=== PATIENT | male | born 1960 | race Caucasian/White ===

== ENCOUNTER 2018-09-13 20:23 | Emergency (ER) | payer MEDICAID ==
[~2018-09-13] VITALS: Ht 157.5 cm; Wt 85.0 kg
[~2018-09-13 20:23] MED LIST: ASPI-41 PO; ENAL10TA78 PO; GABA-532 PO; INSU100V5 IJ; NPH,100V SQ
[2018-09-13] MEDS ORDERED: LIDOcaine 1% w/epiNEPHrine 1:200,000 30ml vial IM ONE (20:30)
[2018-09-13] MEDS ORDERED: normal saline 1000ML IV soln IVB ONE (23:35)
--- NOTE | 2018-09-13 23:40 | NUR ---
pt reporting that he cruz a lot of pain to his right ribs when palpated and when moving and alos pain to his right elbow. automatic bp 74/56, 82/[address] de dios aware. and ordering piv, fluids, and ct scan of abd
[2018-09-13] MEDS ORDERED: iohexol 300mg/ml 100ml inj. ONE (23:45)
--- NOTE | 2018-09-14 00:03 | NUR ---
Seen the patients right lower leg, it is swollen and purple markings to the inner right knee/medial tibial area. Asked for an xray.
--- NOTE | 2018-09-14 00:04 | NUR ---
made aware that I placed the US at BS.
[2018-09-14 00:06] LABS: BASOPHILS % (AUTO) 0.2 % (0-1); EOSINOPHILS % (AUTO) 0.1 % (0-6); HEMATOCRIT 42.1 % (42.0-52.0); HEMOGLOBIN 14.1 g/dl (14.0-17.9); LYMPHOCYTES # (AUTO) 1.3 X10'3 (1.1-4.8); LYMPHOCYTES % (AUTO) 8.5 % (21-51); MEAN CORPUSCULAR HEMOGLOBIN 29.8 PG (27.0-31.0); MEAN CORPUSCULAR HGB CONC 33.4 g/dL (33.0-36.5); MEAN CORPUSCULAR VOLUME 89.1 FL (78-98); MEAN PLATELET VOLUME 8.2 FL (7.4-10.4); MONOCYTES # (AUTO) 0.8 X10'3 (0-0.9); MONOCYTES % (AUTO) 4.9 % (2-12); NEUTROPHILS # (AUTO) 13.7 X10'3 (1.8-7.7); NEUTROPHILS % (AUTO) 86.3 % (42-75); PLATELET COUNT 173 X10'3 (140-440); RED BLOOD COUNT 4.72 X10'6 (4.70-6.10); RED CELL DISTRIBUTION WIDTH 13.7 % (11.5-14.5); WHITE BLOOD COUNT 15.9 X10'3 (4.5-11.0)
--- NOTE | 2018-09-14 00:10 | NUR ---
dr. de dios at bedside to do FAST scan. FAST scan negative per dr. de dios.
[2018-09-14 00:15] LABS: ALANINE AMINOTRANSFERASE 130 U/L (12-78); ALBUMIN 3.3 G/DL (3.4-5.0); ALBUMIN/GLOBULIN RATIO 1.1 (1.1-1.5); ALKALINE PHOSPHATASE 95 IU/L (46-116); ANION GAP 8 (8-16); ASPARTATE AMINO TRANSFERASE 124 U/L (10-37); BILIRUBIN,TOTAL 0.6 MG/DL (0.1-1.0); BLOOD UREA NITROGEN 13 MG/DL (7-18); BUN/CREATININE RATIO 8.9 (5.4-32.0); CHLORIDE 98 MMOL/L (99-107); CREATININE 1.46 MG/DL (0.60-1.10); ETHANOL 0.089 GM/DL (0.0-0.010); GLUCOSE 372 MG/DL (70-104); LIPASE 187 U/L (73-393); POTASSIUM 5.1 MMOL/L (3.5-5.1); SODIUM 132 MMOL/L (135-145); TOTAL PROTEIN 6.2 G/DL (6.4-8.2); eGFR 50 ML/MIN
--- NOTE | 2018-09-14 00:26 | NUR ---
dr. de dios while doing FAST scan, noting a 1 cm lac to pt's right armpit. now ordereing a chest ct . updated that pt reporting 10 otu of 10 pain to his head. my self and rn, jorge, did full body skin check for adtional wounds, non found.
[2018-09-14 01:16] LABS: CLARITY,URINE CLEAR (Clear); COLOR,URINE YELLOW (Yellow); GLUCOSE, URINE >=1000 mg/dl (Neg); KETONES,URINE TRACE mg/dl (Neg); LEUKOCYTE ESTERASE ,URINE NEGATIVE (Neg); NITRITES, URINE NEGATIVE (Neg); OCCULT BLOOD,URINE NEGATIVE (Neg); PH,URINE 5.5 (4.8-8.0); PROTEIN,URINE NEGATIVE (Neg); UA COLLECTION TYPE CLN CATCH MIDSTREAM; UROBILINOGEN,URINE 0.2 E.U/dL (0.2-1.0)
[2018-09-14 01:21] LABS: RBC,URINE 0-2 /HPF (0-2); WBC,URINE NONE SEEN /HPF (0-4)
[2018-09-14 01:22] LABS: BACTERIA,URINE NONE SEEN /HPF (Neg); SQUAMOUS EPITHELIAL CELL,UR FEW /LPF (FEW)
[2018-09-14 01:27] LABS: URINE AMPHETAMINE SCREEN POSITIVE (Neg); URINE BARBITUATE SCREEN NEGATIVE (Neg); URINE BENZODIAZEPINES SCREEN NEGATIVE (Neg); URINE CANNABINOID SCREEN NEGATIVE (Neg); URINE COCAINE SCREEN NEGATIVE (Neg); URINE METHADONE SCREEN NEGATIVE (Neg); URINE OPIATE SCREEN POSITIVE (Neg); URINE PHENCYCLIDINE SCREEN NEGATIVE (Neg)
--- NOTE | 2018-09-14 01:43 | NUR ---
RETURNED FROM XRAY OF RIGHT LEG, STABLE BP NOW.
[2018-09-14] MEDS ORDERED: ketorolac trometh. 30mg/ml inj. IV ONE (03:40)
--- NOTE | 2018-09-14 03:44 | NUR ---
dr soto at bedside to suture head lac and staple right armpit lac.
[2018-09-14] MEDS ORDERED: IBUP-1986 PO (03:45)
[2018-09-14] MEDS ORDERED: ONDA4TAB6 PO (03:45)
[2018-09-14] MEDS ORDERED: HYDR-4353 PO (03:45)
[2018-09-14 03:55] VITALS: BP 112/53
== END 2018-09-14 05:31 | disposition home or self-care (01) ==
LOC: ER 20:23
DX: S81.811A Laceration without foreign body, right lower leg, initial encounter (principal); S01.01XA Laceration without foreign body of scalp, initial encounter; S41.111A Laceration without foreign body of right upper arm, initial encounter; S20.211A Contusion of right front wall of thorax, initial encounter; S50.01XA Contusion of right elbow, initial encounter; I10 Essential (primary) hypertension; E11.9 Type 2 diabetes mellitus without complications; F12.90 Cannabis use, unspecified, uncomplicated; Z79.82 Long term (current) use of aspirin; Z79.899 Other long term (current) drug therapy; Z79.4 Long term (current) use of insulin; W18.49XA Other slipping, tripping and stumbling without falling, initial encounter; Y93.89 Activity, other specified; Y92.89 Other specified places as the place of occurrence of the external cause; Y99.9 Unspecified external cause status
CPT/HCPCS: 12002; 36415; 70450; 71045; 71260; 73080; 73564; 74177; 80053; 80305; 80320; 81001; 83690; 85025; 96374; 99284; J1885; J3490; J7030; Q9967

== ENCOUNTER 2018-09-24 13:23 | Emergency (ER) | payer MEDICAID ==
[~2018-09-24] VITALS: Ht 157.5 cm; Wt 78.0 kg
[~2018-09-24 13:23] MED LIST changes: +HYDR-4353 PO; +IBUP-1986 PO; +ONDA4TAB6 PO
[2018-09-24 14:30] VITALS: BP 149/67
== END 2018-09-24 14:31 | disposition home or self-care (01) ==
LOC: ER 13:24
DX: S01.01XD Laceration without foreign body of scalp, subsequent encounter (principal); S81.811D Laceration without foreign body, right lower leg, subsequent encounter; S41.111D Laceration without foreign body of right upper arm, subsequent encounter; I10 Essential (primary) hypertension; E11.9 Type 2 diabetes mellitus without complications; F12.90 Cannabis use, unspecified, uncomplicated; Z79.82 Long term (current) use of aspirin; X58.XXXD Exposure to other specified factors, subsequent encounter
CPT/HCPCS: 99284

== ENCOUNTER 2018-11-02 11:49 | Inpatient (IN) | payer MEDICAID ==
[~2018-11-02] VITALS: Ht 152.4 cm; Wt 75.3 kg
[2018-11-02] VITALS (14 sets, daily range): BP systolic 89–149; BP diastolic 45–90
[~2018-11-02 11:49] MED LIST changes: -HYDR-4353 PO
[2018-11-02] MEDS ORDERED: ondansetron/PF 4mg/2ml inj IV ONE (12:15)
[2018-11-02] MEDS ORDERED: ketorolac trometh. 30mg/ml inj. IV ONE (12:15)
[2018-11-02] MEDS ORDERED: normal saline 1000ML IV soln IVB ONE (12:15)
[2018-11-02 12:49] LABS: BASOPHILS % (AUTO) 0.3 % (0-1); EOSINOPHILS # (AUTO) 0.1 X10'3 (0-0.9); EOSINOPHILS % (AUTO) 0.4 % (0-6); HEMATOCRIT 50.2 % (42.0-52.0); HEMOGLOBIN 17.3 g/dl (14.0-17.9); LYMPHOCYTES # (AUTO) 1.7 X10'3 (1.1-4.8); LYMPHOCYTES % (AUTO) 9.9 % (21-51); MEAN CORPUSCULAR HEMOGLOBIN 30.6 PG (27.0-31.0); MEAN CORPUSCULAR HGB CONC 34.4 g/dL (33.0-36.5); MEAN PLATELET VOLUME 8.4 FL (7.4-10.4); MONOCYTES # (AUTO) 1.2 X10'3 (0-0.9); MONOCYTES % (AUTO) 7.3 % (2-12); NEUTROPHILS # (AUTO) 14.1 X10'3 (1.8-7.7); NEUTROPHILS % (AUTO) 82.1 % (42-75); PLATELET COUNT 332 X10'3 (140-440); RED BLOOD COUNT 5.65 X10'6 (4.70-6.10); RED CELL DISTRIBUTION WIDTH 13.3 % (11.5-14.5); WHITE BLOOD COUNT 17.2 X10'3 (4.5-11.0)
[2018-11-02 13:07] LABS: ALANINE AMINOTRANSFERASE 24 U/L (12-78); ALBUMIN 2.7 G/DL (3.4-5.0); ALBUMIN/GLOBULIN RATIO 0.5 (1.1-1.5); ALKALINE PHOSPHATASE 100 IU/L (46-116); ANION GAP 10 (8-16); ASPARTATE AMINO TRANSFERASE 14 U/L (10-37); BILIRUBIN,TOTAL 0.9 MG/DL (0.1-1.0); BLOOD UREA NITROGEN 48 MG/DL (7-18); BUN/CREATININE RATIO 26.2 (5.4-32.0); CALCIUM 9.7 MG/DL (8.5-10.1); CHLORIDE 89 MMOL/L (99-107); CREATININE 1.83 MG/DL (0.60-1.10); GLUCOSE 274 MG/DL (70-104); LIPASE 74 U/L (73-393); POTASSIUM 3.7 MMOL/L (3.5-5.1); SODIUM 127 MMOL/L (135-145); TOTAL CARBON DIOXIDE 28.4 MMOL/L (24-32); TOTAL PROTEIN 8.2 G/DL (6.4-8.2); eGFR 38 ML/MIN
[2018-11-02] MEDS ORDERED: piperacillin/tazo 3.375gm/50ml 50 ML IV ONE (14:25)
[2018-11-02] MEDS ORDERED: normal saline 1000ML IV soln IV ONE (14:25)
[2018-11-02 14:50] LABS: CLARITY,URINE CLEAR (Clear); COLOR,URINE YELLOW (Yellow); GLUCOSE, URINE >=1000 mg/dl (Neg); KETONES,URINE TRACE mg/dl (Neg); LEUKOCYTE ESTERASE ,URINE NEGATIVE (Neg); NITRITES, URINE NEGATIVE (Neg); OCCULT BLOOD,URINE TRACE-INTACT (Neg); PROTEIN,URINE 30 mg/dl (Neg)
[2018-11-02] MEDS ORDERED: CYCL-1 PO (14:50)
[2018-11-02] MEDS ORDERED: GABA-532 PO (14:50)
[2018-11-02] MEDS ORDERED: LISI-600 PO (14:51)
[2018-11-02] MEDS ORDERED: ASPI-1265 PO (14:51)
[2018-11-02] MEDS ORDERED: INSU200I SQ (14:52)
[2018-11-02] MEDS ORDERED: INSU100I31 SQ (14:52)
[2018-11-02 14:57] LABS: UA COLLECTION TYPE CLN CATCH MIDSTREAM
[2018-11-02 14:58] LABS: BACTERIA,URINE FEW /HPF (Neg); COARSE GRANULAR CAST 0-3 /LPF (NEGATIVE); MUCUS STRANDS FEW /LPF (Neg); RBC,URINE 0-2 /HPF (0-2); SQUAMOUS EPITHELIAL CELL,UR FEW /LPF (FEW); WBC,URINE 0-4 /HPF (0-4)
[2018-11-02] MEDS ORDERED: magnesium hydroxide 30ml (MOM) UD suspension PO PRN (15:00)
[2018-11-02] MEDS ORDERED: ondansetron/PF 4mg/2ml inj IV PRN ×2 (15:00→17:15)
[2018-11-02] MEDS: K and/or MAG REPLACEMENT MC SCH (15:00)
[2018-11-02] MEDS ORDERED: magnesium 2GM in 50ml NS 50 ML IV PRN (15:00)
[2018-11-02] MEDS ORDERED: potassium Cl 20 mEq SR tablet PO PRN ×2 (15:00)
[2018-11-02] MEDS ORDERED: magnesium Cl slow-release 64mg tablet PO PRN (15:00)
[2018-11-02] MEDS ORDERED: HYDROcodone/acetaminophen 10/325mg tab PO PRN (15:00)
[2018-11-02] MEDS ORDERED: acetaminophen 325mg tablet PO PRN (15:00)
[2018-11-02] MEDS ORDERED: HYDROcodone/acetaminophen 5mg/325mg tablet PO PRN ×2 (15:00→17:40)
[2018-11-02] MEDS ORDERED: HYDROmorphone inj. 0.5 MG/0.5 ML DISP.SYRIN IV PRN (15:00)
[2018-11-02] MEDS ORDERED: magnesium 4gm in 100ml NS 100 ML IV PRN (15:00)
[2018-11-02] MEDS ORDERED: potassium Cl 40MEQ/NS 500ml 500 ML IV PRN ×2 (15:00)
[2018-11-02] MEDS ORDERED: bisacodyl 10mg suppository rectal RC PRN (15:00)
[2018-11-02] MEDS ORDERED: dextrose 50%-water 50ml dispensing syringe IV PRN ×2 (15:05)
[2018-11-02] MEDS ORDERED: glucagon, human recombinant 1mg kit SUBCUT PRN (15:05)
[2018-11-02] MEDS ORDERED: LORazepam 2 mg/ml vial IV PRN (15:05)
[2018-11-02] MEDS ORDERED: MESSAGE TO PHARMACY PO ONE (15:05)
[2018-11-02] MEDS ORDERED: folic acid inj. 2 MG, thiamine inj. 100 MG, MVI, adult No.4 with vit. K 10 ML in dextro... IV SCH ×4 (15:05)
[2018-11-02] MEDS ORDERED: dextrose ORAL solution 15 GM/59 ML bottle PO PRN ×2 (15:05)
[2018-11-02] MEDS ORDERED: LORazepam 1 MG tablet PO PRN (15:05)
[2018-11-02] MEDS ORDERED: cyclobenzaprine 10mg tablet PO PRN (15:05)
[2018-11-02] MEDS ORDERED: LIDOcaine 1% 30ml preserv. free vial ONE (15:25)
[2018-11-02] MEDS ORDERED: BUPIVAcaine/PF 2.5mg/ml (0.25%) 10ml vial ONE (15:26)
[2018-11-02 15:27] LABS: TOTAL CELLS COUNTED 100
[2018-11-02 15:28] LABS: HEMOGLOBIN A1C 9.2 % (4.5-6.2)
[2018-11-02 15:30] LABS: PLATELET ESTIMATE NORMAL
--- NOTE | 2018-11-02 15:32 | NUR ---
Attempted to call report to floor. line haul owner operator has not assigned pt yet, they will call me when they have an assignment.
[2018-11-02 15:38] LABS: TOXIC GRANULATION 1+; TOXIC VACUOLATION FEW
--- NOTE | 2018-11-02 16:15 | NUR ---
Received report from MAXWELL Hansen. Patient went straight to the OR then will come up to the floor.
[2018-11-02] MEDS ORDERED: sevoflurane 250ml liquid IH ONE (16:38)
[2018-11-02] MEDS ORDERED: midazolam 2 mg/2 ml injection ONE (16:41)
[2018-11-02] MEDS ORDERED: fentaNYL /PF 50mcg/ml 5ml ampule ONE (16:42)
[2018-11-02] MEDS ORDERED: propofol inj 20 ML IV ONE (16:44)
[2018-11-02] MEDS ORDERED: rocuronium 10mg/ml inj IV ONE (16:44)
[2018-11-02] MEDS ORDERED: cefotetan 2gm/isosm dext IVPB 50 ML IV ONE (16:53)
[2018-11-02] MEDS ORDERED: ringers solution, lacted 1,000 ML IV SCH (17:14)
[2018-11-02] MEDS ORDERED: proCHLORperazine 10 MG/2 ml inj IV PRN (17:15)
[2018-11-02] MEDS ORDERED: morphine 4 MG/ML inj SYRINge IV PRN ×2 (17:15)
[2018-11-02] MEDS ORDERED: meperidine/PF 25mg/ml syringe IV PRN ×3 (17:15)
[2018-11-02] MEDS ORDERED: neostigmine methylsulfate 1 MG/ML 10ml vial ONE (17:28)
[2018-11-02] MEDS ORDERED: glycopyrrolate 0.2mg/ml inj ONE (17:47)
--- NOTE | 2018-11-02 17:49 | NUR ---
Received from OR via SURGICAL BED , accompanied by Anesthesiologist SOSA and report given by Anesthesiolgist. PATIENT WITH 20G PIV IN LEFT UE RUNNING LR AT 100. PATIENT WITH 10L MASK ON WITH 100% SATURATIONS. 2 ABDOMINAL BANDAIDS PRESENT AND A CAITLYN TUBE. VSS Addendum: 11/02/18 at 1811 by Esau Vinson RN, RN Amended: Links added.
--- NOTE | 2018-11-02 18:05 | NUR ---
Problems reprioritized. Patient report given, questions answered & plan of care reviewed with MAXWELL Montanez. Addendum: 11/02/18 at 1855 by Ivory Markham RN MAXWELL Alberto RN.
--- NOTE | 2018-11-02 18:49 | NUR ---
Report called to receiving nurse. Transferred via SURGICAL BED WITH SEVERAL BAGS OF Belongings. Special Issues communicated to receiving nurse TEVIN ARREOLA.VSS. PAIN WELL CONTROLLED. RN PRESENT TO ACCEPT CARE OF PATIENT. SCDS DONNED AND DRESSING STILL CDI. Addendum: 11/02/18 at 1908 by Esau Vinson RN RN Amended: Links added.
--- NOTE | 2018-11-02 18:55 | NUR ---
RECEIVED PT. FROM RECOVERY ROOM PER BED TO ROOM 345 A.
[2018-11-02] MEDS: heparin, porcine 5000 units/ml vial SQ SCH (20:00)
[2018-11-02] MEDS: gabapentin 300mg capsule PO SCH (20:06)
[2018-11-02] MEDS: docusate sod 100mg capsule PO SCH (20:06)
[2018-11-02] MEDS: HYDROmorphone 1 mg/ml syringe IV PRN (20:08)
[2018-11-02] MEDS: insulin glargine (Lantus) pen - multi-dose SQ SCH (21:22)
[2018-11-02] MEDS: piperacillin/tazo 4.5gm/100ml 100 ML IV SCH (23:53)
[2018-11-03] VITALS: BP 113/72
[2018-11-03] MEDS: potassium Cl 20mEq in NS 1,000 ML IV SCH ×4 (00:58→15:11)
[2018-11-03] MEDS: HYDROmorphone 1 mg/ml syringe IV PRN (02:05)
[2018-11-03 04:00] VITALS: BP 104/62
--- NOTE | 2018-11-03 04:27 | NUR ---
PT. ATTEMPTED MULTIPLE TIMES TO URINATE AND VOIDED ONLY 50 CC, BLADDER SCAN SHOWS 420 CC, DR. MOJICA NOTIFIED, NNO.
[2018-11-03 05:14] LABS: BASOPHILS % (AUTO) 0.2 % (0-1); EOSINOPHILS % (AUTO) 0 % (0-6); HEMATOCRIT 48.1 % (42.0-52.0); HEMOGLOBIN 16.1 g/dl (14.0-17.9); LYMPHOCYTES # (AUTO) 1.2 X10'3 (1.1-4.8); LYMPHOCYTES % (AUTO) 7.9 % (21-51); MEAN CORPUSCULAR HEMOGLOBIN 30.1 PG (27.0-31.0); MEAN CORPUSCULAR HGB CONC 33.6 g/dL (33.0-36.5); MEAN CORPUSCULAR VOLUME 89.6 FL (78-98); MEAN PLATELET VOLUME 8.4 FL (7.4-10.4); MONOCYTES # (AUTO) 1.1 X10'3 (0-0.9); MONOCYTES % (AUTO) 7.2 % (2-12); NEUTROPHILS # (AUTO) 12.9 X10'3 (1.8-7.7); NEUTROPHILS % (AUTO) 84.7 % (42-75); PLATELET COUNT 341 X10'3 (140-440); RED BLOOD COUNT 5.37 X10'6 (4.70-6.10); RED CELL DISTRIBUTION WIDTH 13.5 % (11.5-14.5); WHITE BLOOD COUNT 15.2 X10'3 (4.5-11.0)
[2018-11-03 05:35] LABS: ALANINE AMINOTRANSFERASE 22 U/L (12-78); ALBUMIN 2.1 G/DL (3.4-5.0); ALBUMIN/GLOBULIN RATIO 0.5 (1.1-1.5); ALKALINE PHOSPHATASE 72 IU/L (46-116); ANION GAP 13 (8-16); ASPARTATE AMINO TRANSFERASE 22 U/L (10-37); BILIRUBIN,TOTAL 1.2 MG/DL (0.1-1.0); BLOOD UREA NITROGEN 36 MG/DL (7-18); BUN/CREATININE RATIO 17.3 (5.4-32.0); CHLORIDE 94 MMOL/L (99-107); CREATININE 2.08 MG/DL (0.60-1.10); GLUCOSE 148 MG/DL (70-104); MAGNESIUM 1.9 MG/DL (1.5-2.4); PHOSPHORUS 3.9 MG/DL (2.3-4.5); SODIUM 129 MMOL/L (135-145); TOTAL CARBON DIOXIDE 21.9 MMOL/L (24-32); TOTAL PROTEIN 6.6 G/DL (6.4-8.2); eGFR 33 ML/MIN
[2018-11-03] MEDS: piperacillin/tazo 4.5gm/100ml 100 ML IV SCH ×4 (05:43→23:51)
[2018-11-03 06:13] LABS: PLATELET ESTIMATE NORMAL; TOTAL CELLS COUNTED 100; TOXIC GRANULATION 1+
--- NOTE | 2018-11-03 06:30 | NUR ---
Patient in room [facility]. I have received report from Remy ARREOLA and had the opportunity to ask questions and assume patient care.
--- NOTE | 2018-11-03 06:31 | NUR ---
Problems reprioritized. Patient report given, questions answered & plan of care reviewed with MARIPOSA ARREOLA.
[2018-11-03 07:14] VITALS: BP 105/68
[2018-11-03] MEDS: K and/or MAG REPLACEMENT MC SCH (07:25)
[2018-11-03] MEDS: thiamine 100mg tablet PO SCH (07:33)
[2018-11-03] MEDS: docusate sod 100mg capsule PO SCH ×2 (07:33→20:19)
[2018-11-03] MEDS: multivitamins, therapeutics tablet PO SCH (07:34)
[2018-11-03] MEDS: gabapentin 300mg capsule PO SCH ×2 (07:34→20:19)
[2018-11-03] MEDS: folic acid 1mg tablet PO SCH (07:34)
[2018-11-03] MEDS: heparin, porcine 5000 units/ml vial SQ SCH ×2 (07:35→20:20)
[2018-11-03] MEDS: HYDROcodone/acetaminophen 10/325mg tab PO PRN ×3 (07:36→19:08)
[2018-11-03] MEDS ORDERED: lisinopril 20mg tablet PO SCH (08:00)
[2018-11-03] MEDS: insulin Lispro (HumaLOG) vial - multi-dose SQ SCH ×3 (09:24→19:01)
[2018-11-03] MEDS: mag hydrox/Alum hydrox/simeth 30ml oral suspension PO PRN (09:51)
[2018-11-03 11:46] VITALS: BP 93/56
--- NOTE | 2018-11-03 11:47 | NUR ---
paged regarding low BP of 93/56. Awaiting call back.
--- NOTE | 2018-11-03 12:10 | NUR ---
aware of low BP of 93/56. No new orders at this time.
--- NOTE | 2018-11-03 13:23 | NUR ---
DM consult: Pt with A1c 9.2 seen at bedside. Pt states he takes his insulin per rx without difficulties however hasn't been checking his BG levels lately. RD encouraged pt to check his BG more frequently to ensure adequate insulin use. Pt reports no questions about DM management stating he has multiple family members with DM. Pt given written DM ed with referral to outpatient CDE class and RD contact information. Pt admit with acute appendicitis with associated abscess now s/p lap appendectomy. Pt endorses a good appetite and denies any food allergies, difficulty chewing/swallowing, or constipation/diarrhea. [facility] 11/01. Will continue to follow. Recommendations: 1) Advance to heart healthy CHO controlled diet as medically indicated 2) Monitor need for additional bowel care 3) Wt per rx Addendum: 11/03/18 at [address] Amended: Links added.
--- NOTE | 2018-11-03 18:27 | NUR ---
Problems reprioritized. Patient report given, questions answered & plan of care reviewed with Remy ARREOLA.
--- NOTE | 2018-11-03 18:27 | NUR ---
Patient in room [facility]. I have received report from MARIPOSA ARREOLA and had the opportunity to ask questions and assume patient care.
[2018-11-03 19:00] VITALS: BP 117/55
[2018-11-03] MEDS: insulin glargine (Lantus) pen - multi-dose SQ SCH (21:20)
[2018-11-04] VITALS: BP 121/72
[2018-11-04] MEDS: potassium Cl 20mEq in NS 1,000 ML IV SCH ×2 (00:22→16:08)
[2018-11-04] MEDS: HYDROcodone/acetaminophen 10/325mg tab PO PRN ×4 (02:29→20:56)
[2018-11-04 04:35] LABS: BASOPHILS % (AUTO) 0.1 % (0-1); EOSINOPHILS # (AUTO) 0.2 X10'3 (0-0.9); EOSINOPHILS % (AUTO) 1.7 % (0-6); HEMATOCRIT 39.3 % (42.0-52.0); HEMOGLOBIN 13.1 g/dl (14.0-17.9); LYMPHOCYTES # (AUTO) 1.2 X10'3 (1.1-4.8); LYMPHOCYTES % (AUTO) 10.3 % (21-51); MEAN CORPUSCULAR HEMOGLOBIN 29.6 PG (27.0-31.0); MEAN CORPUSCULAR HGB CONC 33.3 g/dL (33.0-36.5); MONOCYTES % (AUTO) 8.3 % (2-12); NEUTROPHILS # (AUTO) 9.2 X10'3 (1.8-7.7); NEUTROPHILS % (AUTO) 79.6 % (42-75); PLATELET COUNT 277 X10'3 (140-440); RED BLOOD COUNT 4.42 X10'6 (4.70-6.10); RED CELL DISTRIBUTION WIDTH 13.4 % (11.5-14.5); WHITE BLOOD COUNT 11.5 X10'3 (4.5-11.0)
[2018-11-04 04:48] LABS: ALANINE AMINOTRANSFERASE 19 U/L (12-78); ALBUMIN 1.7 G/DL (3.4-5.0); ALBUMIN/GLOBULIN RATIO 0.4 (1.1-1.5); ALKALINE PHOSPHATASE 50 IU/L (46-116); ANION GAP 5 (8-16); ASPARTATE AMINO TRANSFERASE 16 U/L (10-37); BILIRUBIN,TOTAL 0.6 MG/DL (0.1-1.0); BLOOD UREA NITROGEN 27 MG/DL (7-18); BUN/CREATININE RATIO 20.9 (5.4-32.0); CALCIUM 7.8 MG/DL (8.5-10.1); CHLORIDE 97 MMOL/L (99-107); CREATININE 1.29 MG/DL (0.60-1.10); GLUCOSE 95 MG/DL (70-104); PHOSPHORUS 2.6 MG/DL (2.3-4.5); POTASSIUM 3.6 MMOL/L (3.5-5.1); SODIUM 129 MMOL/L (135-145); TOTAL CARBON DIOXIDE 27.2 MMOL/L (24-32); TOTAL PROTEIN 5.7 G/DL (6.4-8.2); eGFR 58 ML/MIN
--- NOTE | 2018-11-04 06:49 | NUR ---
Problems reprioritized. Patient report given, questions answered & plan of care reviewed with NICKI ARREOLA.
[2018-11-04] MEDS: K and/or MAG REPLACEMENT MC SCH (07:16)
[2018-11-04] MEDS: thiamine 100mg tablet PO SCH (07:46)
[2018-11-04] MEDS: multivitamins, therapeutics tablet PO SCH (07:46)
[2018-11-04] MEDS: lisinopril 5mg tablet PO SCH (07:46)
[2018-11-04] MEDS: folic acid 1mg tablet PO SCH (07:46)
[2018-11-04] MEDS: docusate sod 100mg capsule PO SCH ×2 (07:47→20:55)
[2018-11-04] MEDS: gabapentin 300mg capsule PO SCH ×2 (07:47→20:55)
[2018-11-04] MEDS: piperacillin/tazo 4.5gm/100ml 100 ML IV SCH (07:47)
[2018-11-04] MEDS: heparin, porcine 5000 units/ml vial SQ SCH ×2 (07:47→20:54)
[2018-11-04 08:00] VITALS: BP 115/77
[2018-11-04] MEDS: levoFLOXACIN-Levaquin 750MG/D5 150 ML IV SCH (13:19)
[2018-11-04] MEDS: insulin Lispro (HumaLOG) vial - multi-dose SQ SCH (13:59)
[2018-11-04] MEDS: metroNIDAZOLE-Flagyl 500mg/NS 100 ML IV SCH ×2 (16:08→23:44)
--- NOTE | 2018-11-04 18:21 | NUR ---
Problems reprioritized. Patient report given, questions answered & plan of care reviewed with darrell busby.
--- NOTE | 2018-11-04 19:01 | NUR ---
Patient in room [facility]. I have received report from MAXWELL Funez and had the opportunity to ask questions and assume patient care. Addendum: 11/04/18 at 1903 by Shara Heredia RN Amended: Links added.
[2018-11-04 19:25] VITALS: BP 141/84
[2018-11-04] MEDS: lactobacillus rhamnosus 10,000 MMU CELLS/CAPSULE PO SCH (20:54)
[2018-11-04] MEDS: insulin glargine (Lantus) pen - multi-dose SQ SCH (21:01)
[2018-11-04 23:20] VITALS: BP 146/91
[2018-11-05] MEDS: potassium Cl 20mEq in NS 1,000 ML IV SCH ×2 (03:43→14:32)
[2018-11-05 04:25] LABS: BASOPHILS % (AUTO) 0.1 % (0-1); EOSINOPHILS # (AUTO) 0.2 X10'3 (0-0.9); EOSINOPHILS % (AUTO) 1.4 % (0-6); HEMATOCRIT 39.4 % (42.0-52.0); HEMOGLOBIN 13.3 g/dl (14.0-17.9); LYMPHOCYTES # (AUTO) 0.9 X10'3 (1.1-4.8); LYMPHOCYTES % (AUTO) 6.7 % (21-51); MEAN CORPUSCULAR HEMOGLOBIN 29.7 PG (27.0-31.0); MEAN CORPUSCULAR HGB CONC 33.7 g/dL (33.0-36.5); MEAN CORPUSCULAR VOLUME 88.2 FL (78-98); MEAN PLATELET VOLUME 7.7 FL (7.4-10.4); MONOCYTES # (AUTO) 0.9 X10'3 (0-0.9); MONOCYTES % (AUTO) 6.6 % (2-12); NEUTROPHILS # (AUTO) 11.1 X10'3 (1.8-7.7); NEUTROPHILS % (AUTO) 85.2 % (42-75); PLATELET COUNT 294 X10'3 (140-440); RED BLOOD COUNT 4.47 X10'6 (4.70-6.10); RED CELL DISTRIBUTION WIDTH 13.8 % (11.5-14.5)
[2018-11-05 04:33] LABS: ALANINE AMINOTRANSFERASE 13 U/L (12-78); ALBUMIN 1.7 G/DL (3.4-5.0); ALBUMIN/GLOBULIN RATIO 0.4 (1.1-1.5); ALKALINE PHOSPHATASE 80 IU/L (46-116); ANION GAP 9 (8-16); ASPARTATE AMINO TRANSFERASE 15 U/L (10-37); BILIRUBIN,TOTAL 0.5 MG/DL (0.1-1.0); BLOOD UREA NITROGEN 14 MG/DL (7-18); BUN/CREATININE RATIO 16.9 (5.4-32.0); CHLORIDE 98 MMOL/L (99-107); CREATININE 0.83 MG/DL (0.60-1.10); GLUCOSE 103 MG/DL (70-104); MAGNESIUM 1.8 MG/DL (1.5-2.4); POTASSIUM 4.2 MMOL/L (3.5-5.1); SODIUM 132 MMOL/L (135-145); TOTAL CARBON DIOXIDE 25.4 MMOL/L (24-32); TOTAL PROTEIN 5.6 G/DL (6.4-8.2); eGFR > 90 ML/MIN
--- NOTE | 2018-11-05 06:21 | NUR ---
Problems reprioritized. Patient report given, questions answered & plan of care reviewed with MAXWELL Quinn. Addendum: 11/05/18 at 0622 by Shara Heredia RN Amended: Links added.
[2018-11-05 08:00] VITALS: BP 136/86
[2018-11-05] MEDS: K and/or MAG REPLACEMENT MC SCH (08:00)
[2018-11-05] MEDS: metroNIDAZOLE-Flagyl 500mg/NS 100 ML IV SCH ×3 (08:25→23:21)
[2018-11-05] MEDS: levoFLOXACIN-Levaquin 750MG/D5 150 ML IV SCH (08:26)
[2018-11-05] MEDS: lactobacillus rhamnosus 10,000 MMU CELLS/CAPSULE PO SCH ×2 (08:28→21:05)
[2018-11-05] MEDS: docusate sod 100mg capsule PO SCH ×2 (08:28→21:05)
[2018-11-05] MEDS: thiamine 100mg tablet PO SCH (08:28)
[2018-11-05] MEDS: lisinopril 5mg tablet PO SCH (08:29)
[2018-11-05] MEDS: multivitamins, therapeutics tablet PO SCH (08:29)
[2018-11-05] MEDS: gabapentin 300mg capsule PO SCH ×2 (08:29→21:05)
[2018-11-05] MEDS: heparin, porcine 5000 units/ml vial SQ SCH ×2 (08:30→21:05)
[2018-11-05] MEDS: folic acid 1mg tablet PO SCH (08:30)
[2018-11-05] MEDS: HYDROcodone/acetaminophen 10/325mg tab PO PRN ×2 (08:32→21:12)
[2018-11-05 08:34] LABS: BASOPHILS % (AUTO) 0.2 % (0-1); EOSINOPHILS # (AUTO) 0.2 X10'3 (0-0.9); EOSINOPHILS % (AUTO) 1.4 % (0-6); HEMATOCRIT 39.7 % (42.0-52.0); HEMOGLOBIN 13.5 g/dl (14.0-17.9); LYMPHOCYTES # (AUTO) 0.9 X10'3 (1.1-4.8); LYMPHOCYTES % (AUTO) 6.4 % (21-51); MEAN CORPUSCULAR HEMOGLOBIN 30.3 PG (27.0-31.0); MEAN CORPUSCULAR VOLUME 89.2 FL (78-98); MEAN PLATELET VOLUME 7.5 FL (7.4-10.4); MONOCYTES # (AUTO) 0.9 X10'3 (0-0.9); MONOCYTES % (AUTO) 6.2 % (2-12); NEUTROPHILS # (AUTO) 12.5 X10'3 (1.8-7.7); NEUTROPHILS % (AUTO) 85.8 % (42-75); PLATELET COUNT 299 X10'3 (140-440); RED BLOOD COUNT 4.45 X10'6 (4.70-6.10); RED CELL DISTRIBUTION WIDTH 13.4 % (11.5-14.5); WHITE BLOOD COUNT 14.6 X10'3 (4.5-11.0)
[2018-11-05] MEDS: mag hydrox/Alum hydrox/simeth 30ml oral suspension PO PRN (08:34)
[2018-11-05 12:00] VITALS: BP 142/86
[2018-11-05] MEDS: insulin Lispro (HumaLOG) vial - multi-dose SQ SCH (14:17)
[2018-11-05 20:00] VITALS: BP 132/82
[2018-11-05] MEDS: insulin glargine (Lantus) pen - multi-dose SQ SCH (21:08)
[2018-11-06 00:23] VITALS: BP 133/77
[2018-11-06] MEDS: potassium Cl 20mEq in NS 1,000 ML IV SCH ×2 (02:31→03:50)
[2018-11-06 04:32] LABS: BASOPHILS % (AUTO) 0.2 % (0-1); EOSINOPHILS # (AUTO) 0.2 X10'3 (0-0.9); EOSINOPHILS % (AUTO) 1.5 % (0-6); HEMATOCRIT 39.1 % (42.0-52.0); HEMOGLOBIN 13.1 g/dl (14.0-17.9); LYMPHOCYTES # (AUTO) 1.1 X10'3 (1.1-4.8); LYMPHOCYTES % (AUTO) 9.5 % (21-51); MEAN CORPUSCULAR HEMOGLOBIN 29.6 PG (27.0-31.0); MEAN CORPUSCULAR HGB CONC 33.6 g/dL (33.0-36.5); MEAN PLATELET VOLUME 7.4 FL (7.4-10.4); MONOCYTES # (AUTO) 0.9 X10'3 (0-0.9); MONOCYTES % (AUTO) 7.7 % (2-12); NEUTROPHILS # (AUTO) 9.2 X10'3 (1.8-7.7); NEUTROPHILS % (AUTO) 81.1 % (42-75); PLATELET COUNT 349 X10'3 (140-440); RED BLOOD COUNT 4.44 X10'6 (4.70-6.10); RED CELL DISTRIBUTION WIDTH 13.5 % (11.5-14.5); WHITE BLOOD COUNT 11.3 X10'3 (4.5-11.0)
[2018-11-06 04:35] LABS: ALANINE AMINOTRANSFERASE 15 U/L (12-78); ALBUMIN 1.7 G/DL (3.4-5.0); ALBUMIN/GLOBULIN RATIO 0.5 (1.1-1.5); ALKALINE PHOSPHATASE 92 IU/L (46-116); ANION GAP 7 (8-16); ASPARTATE AMINO TRANSFERASE 19 U/L (10-37); BILIRUBIN,TOTAL 0.6 MG/DL (0.1-1.0); BLOOD UREA NITROGEN 9 MG/DL (7-18); BUN/CREATININE RATIO 10.6 (5.4-32.0); CHLORIDE 101 MMOL/L (99-107); CREATININE 0.85 MG/DL (0.60-1.10); GLUCOSE 98 MG/DL (70-104); MAGNESIUM 1.7 MG/DL (1.5-2.4); POTASSIUM 4.2 MMOL/L (3.5-5.1); SODIUM 133 MMOL/L (135-145); TOTAL CARBON DIOXIDE 24.7 MMOL/L (24-32); TOTAL PROTEIN 5.3 G/DL (6.4-8.2); eGFR > 90 ML/MIN
--- NOTE | 2018-11-06 06:00 | NUR ---
Patient in room [facility]. I have received report from MAXWELL Olmedo and had the opportunity to ask questions and assume patient care.
--- NOTE | 2018-11-06 06:17 | NUR ---
Problems reprioritized. Patient report given, questions answered & plan of care reviewed with MAXWELL Dodson. Addendum: 11/06/18 at 0618 by Shara Heredia RN Amended: Links added.
[2018-11-06 07:21] VITALS: BP 177/93
[2018-11-06] MEDS: metroNIDAZOLE-Flagyl 500mg/NS 100 ML IV SCH ×2 (07:26→16:00)
[2018-11-06] MEDS: levoFLOXACIN-Levaquin 750MG/D5 150 ML IV SCH (07:26)
[2018-11-06] MEDS: docusate sod 100mg capsule PO SCH (07:27)
[2018-11-06] MEDS: gabapentin 300mg capsule PO SCH (07:27)
[2018-11-06] MEDS: lactobacillus rhamnosus 10,000 MMU CELLS/CAPSULE PO SCH (07:27)
[2018-11-06] MEDS: multivitamins, therapeutics tablet PO SCH (07:27)
[2018-11-06] MEDS: thiamine 100mg tablet PO SCH (07:27)
[2018-11-06] MEDS: folic acid 1mg tablet PO SCH (07:27)
[2018-11-06] MEDS: lisinopril 5mg tablet PO SCH (07:28)
[2018-11-06] MEDS: HYDROmorphone 1 mg/ml syringe IV PRN (07:28)
[2018-11-06] MEDS: heparin, porcine 5000 units/ml vial SQ SCH (07:32)
[2018-11-06] MEDS: K and/or MAG REPLACEMENT MC SCH (08:00)
--- NOTE | 2018-11-06 09:00 | NUR ---
Only gave patient 3 units of Humalog because he is a level 1 and his sugar was 85 this am. He also had 85 grams of carbs because he had a regular try and ate all of it. I didn't want him to decrease so I opted to give him 3 units instead of 5 since he is also going home. His Ha1c is 9.2 so he usually runs high.
[2018-11-06] MEDS: insulin Lispro (HumaLOG) vial - multi-dose SQ SCH (09:10)
[2018-11-06 11:25] VITALS: BP 141/84
[2018-11-06] MEDS: HYDROcodone/acetaminophen 10/325mg tab PO PRN (11:33)
[2018-11-06] MEDS ORDERED: FOLI1TAB16 PO (14:03)
[2018-11-06] MEDS ORDERED: METR-159 PO (14:03)
[2018-11-06] MEDS ORDERED: thiamine tablet PO (14:03)
[2018-11-06] MEDS ORDERED: DOCU-28 PO (14:03)
[2018-11-06] MEDS ORDERED: HYDR-3972 PO (14:03)
[2018-11-06] MEDS ORDERED: LEVO500T2 PO (14:03)
--- NOTE | 2018-11-06 17:53 | NUR ---
Patient discharged. PIV removed by MAXWELL Escalona. Education given to patient and he verbalized understanding. Patient received norco; we well as, other medications through [facility] at [place]. Patient will call for an appointment with Dr. Cardenas next . Patients' discharge took longer than 3 hours because he said that his ride was 15 minutes away but they took almost 2 hours to get here. [place]. I let the patient know when to call his ride and then we waited. Patient was wheeled down by staff.
== END 2018-11-06 17:53 | disposition home or self-care (01) | DRG 233 ==
LOC: ER 11:50 → PACU 14:33 → SUR 3N 18:56
PROVIDERS: ADMIT Internal Medicine; ATTEND Internal Medicine
PROC: 0DTJ4ZZ Resection of Appendix, Percutaneous Endoscopic Approach (ICD-10-PCS; principal; 2018-11-02 16:38)
DX: K35.33 Acute appendicitis with perforation, localized peritonitis, and gangrene, with abscess (principal); K56.600 Partial intestinal obstruction, unspecified as to cause; E11.22 Type 2 diabetes mellitus with diabetic chronic kidney disease; N17.9 Acute kidney failure, unspecified; N18.3 Chronic kidney disease, stage 3 (moderate); R16.0 Hepatomegaly, not elsewhere classified; E87.1 Hypo-osmolality and hyponatremia; I12.9 Hypertensive chronic kidney disease with stage 1 through stage 4 chronic kidney disease, or unspecified chronic kidney disease; F10.20 Alcohol dependence, uncomplicated; E86.0 Dehydration; F17.200 Nicotine dependence, unspecified, uncomplicated; J44.9 Chronic obstructive pulmonary disease, unspecified; F12.90 Cannabis use, unspecified, uncomplicated; F15.90 Other stimulant use, unspecified, uncomplicated; Z86.73 Personal history of transient ischemic attack (TIA), and cerebral infarction without residual deficits; Z79.82 Long term (current) use of aspirin; Z79.4 Long term (current) use of insulin
CPT/HCPCS: 36415; 74176; 80053; 81001; 82948; 83036; 83690; 83735; 84100; 85025; 87040; 87070; 96374; 96375; 99285; A6251; A7000; G0378; J1170; J1644; J1815; J1885; J1956; J2250; J2405; J2543; J2704; J2710; J3010; J3411; J3475; J3490; J7060; J7120

== ENCOUNTER 2022-02-01 16:31 | Emergency (ER) | payer MEDICAID ==
[~2022-02-01] VITALS: Ht 157.5 cm; Wt 74.7 kg
[~2022-02-01 16:31] MED LIST changes: +ASPI-1265 PO; -ASPI-41 PO; +CYCL-1 PO; +DOCU-28 PO; -ENAL10TA78 PO; +FOLI1TAB27 PO; +HYDR-3972 PO; -IBUP-1986 PO; +INSU100I31 SQ; -INSU100V5 IJ; +INSU200I SQ; +LISI20TA28 PO; -NPH,100V SQ; -ONDA4TAB6 PO; +thiamine tablet PO
[2022-02-01 16:37] VITALS: BP 186/105
[2022-02-01] MEDS ORDERED: amox tr/potassium clavulanate 875/125mg TAB PO ONE (18:00)
[2022-02-01] MEDS ORDERED: LIDOcaine 1% 30ml preserv. free vial IJ STA (18:00)
[2022-02-01] MEDS ORDERED: AMOX-117 PO (18:27)
[2022-02-01] MEDS ORDERED: CHLO118M PO (18:27)
== END 2022-02-01 18:50 | disposition home or self-care (01) ==
LOC: ER 16:32
DX: K01.0 Embedded teeth (principal); I10 Essential (primary) hypertension; E11.9 Type 2 diabetes mellitus without complications; F17.200 Nicotine dependence, unspecified, uncomplicated; F12.10 Cannabis abuse, uncomplicated; F15.10 Other stimulant abuse, uncomplicated; Z79.899 Other long term (current) drug therapy; Z79.82 Long term (current) use of aspirin; Z79.84 Long term (current) use of oral hypoglycemic drugs
CPT/HCPCS: 99284; J3490; A6449